=== PATIENT | female | born 1960 | race African-American/Black ===

== ENCOUNTER 2021-03-30 10:58 | Emergency (ER) | payer MEDICAID ==
[~2021-03-30] VITALS: Ht 170.2 cm; Wt 122.0 kg
[~2021-03-30 10:58] MED LIST: AMLO10TA80 PO; ATEN-42 PO; ATOR-2 PO; CLOP75TA33 PO; ESCI10TA PO; HYDR12.529 PO; LURA40TA PO; PIOG45TA5 PO; TRAZ-252 PO
[2021-03-30] MEDS ORDERED: EMPA25TA PO (11:15)
[2021-03-30] MEDS ORDERED: DILT-26 PO (11:15)
[2021-03-30] MEDS ORDERED: PREG150C PO (11:15)
[2021-03-30] MEDS ORDERED: GLIM2TAB30 PO (11:15)
[2021-03-30] MEDS ORDERED: LOSARTAN (11:15)
[2021-03-30] MEDS ORDERED: BITTER MELON (11:15)
[2021-03-30 12:13] LABS: BASOPHILS % 0.6 % (0.0-2.0); EOSINOPHILS % 3.6 % (0.0-5.0); HEMATOCRIT. 43.6 % (36.0-48.0); HEMOGLOBIN. 14.2 g/dL (12.0-16.0); LYMPHOCYTES % 43.1 % (20.0-50.0); MEAN CORPUSCULAR HEMOGLOBIN 27.6 pg (28.0-32.0); MEAN CORPUSCULAR VOLUME 84.9 fL (81.0-99.0); MEAN PLATELET VOLUME 8.8 fl (7.4-10.4); MONOCYTES % 6.2 % (2.0-8.0); NEUTROPHILS % 46.5 % (40.0-76.0); PLATELET 243 x1000/uL (130-400); RED BLOOD CELL COUNT 5.14 mill/uL (4.2-5.4); RED CELL DISTRIBUTION WIDTH 16.6 % (11.6-14.6)
[2021-03-30] MEDS ORDERED: MECLIZINE 12.5MG TABLET PO ONE (12:15)
[2021-03-30 12:18] LABS: CHLORIDE 113 mEq/L (98-107)
[2021-03-30 12:23] LABS: *BARBITURATES SCREEN URINE NEGATIVE (NEGATIVE); *BENZODIAZEPINES SCREEN URINE NEGATIVE (NEGATIVE); METHADONE URINE SCREEN NEGATIVE (NEGATIVE)
[2021-03-30 12:23] LABS: ETHANOL BLOOD < 10 mg/dL
[2021-03-30 12:24] LABS: *AMPHETAMINES SCREEN URINE NEGATIVE (NEGATIVE); *COCAINE SCREEN URINE NEGATIVE (NEGATIVE); CANNABINOID URINE SCREEN NEGATIVE (NEGATIVE); OPIATES URINE SCREEN NEGATIVE (NEGATIVE); PHENCYCLIDINE URINE SCREEN NEGATIVE (NEGATIVE)
[2021-03-30] MEDS ORDERED: ATENOLOL 50 MG TABLET PO SCH (14:00)
[2021-03-30] MEDS ORDERED: ASPIRIN 325MG TABLET PO SCH (14:00)
[2021-03-30] MEDS ORDERED: LOSARTAN POTASSIUM 100 MG TABLET PO SCH (14:00)
[2021-03-30 18:26] VITALS: BP 154/60
== END 2021-03-30 15:38 | disposition short-term general hospital (02) ==
LOC: ER 10:58
DX: R55 Syncope and collapse (principal); R94.31 Abnormal electrocardiogram [ECG] [EKG]; E78.00 Pure hypercholesterolemia, unspecified; E11.9 Type 2 diabetes mellitus without complications; I25.2 Old myocardial infarction; I10 Essential (primary) hypertension; Z88.6 Allergy status to analgesic agent; Z79.899 Other long term (current) drug therapy; Z90.49 Acquired absence of other specified parts of digestive tract
CPT/HCPCS: 36415; 70450; 71045; 80053; 80305; 80320; 83690; 83880; 84484; 85025; 93005; 99285; J8597; Z7610; G0480

== ENCOUNTER 2022-01-10 16:52 | Emergency (ER) | payer MEDICAID, OTHER ==
[~2022-01-10] VITALS: Ht 172.7 cm; Wt 117.0 kg
[~2022-01-10 16:52] MED LIST changes: +BITTER MELON; +DILT-26 PO; +EMPA25TA PO; +GLIM2TAB30 PO; +LOSARTAN; +PREG150C PO
[2022-01-10] MEDS ORDERED: NITROGLYCERIN 0.4MG TABLET SL SL PRN (17:30)
[2022-01-10 17:43] LABS: BASOPHILS % 0.4 % (0.0-2.0); EOSINOPHILS % 2.3 % (0.0-5.0); HEMATOCRIT. 42.1 % (36.0-48.0); HEMOGLOBIN. 13.7 g/dL (12.0-16.0); LYMPHOCYTES % 31.4 % (20.0-50.0); MEAN CORPUSCULAR HEMOGLOBIN 27.6 pg (28.0-32.0); MEAN CORPUSCULAR VOLUME 84.5 fL (81.0-99.0); MONOCYTES % 6.9 % (2.0-8.0); PLATELET 268 x1000/uL (130-400); RED BLOOD CELL COUNT 4.98 mill/uL (4.2-5.4)
[2022-01-10 17:51] LABS: CHLORIDE 110 mEq/L (98-107)
[2022-01-10] MEDS ORDERED: HYDRALAZINE 20MG/ML VIAL IV NR (22:15)
[2022-01-10 22:51] VITALS: BP 220/106
== END 2022-01-10 19:28 | disposition short-term general hospital (02) ==
LOC: ER 16:52
DX: R07.89 Other chest pain (principal); I10 Essential (primary) hypertension; E11.9 Type 2 diabetes mellitus without complications; Z95.1 Presence of aortocoronary bypass graft; Z95.5 Presence of coronary angioplasty implant and graft
CPT/HCPCS: 36415; 71045; 80053; 83880; 84484; 85025; 85379; 93005; 96374; 99285; J0360